=== PATIENT | female | born 1990 | race Caucasian/White ===

== ENCOUNTER 2017-01-26 03:49 | Emergency (ER) | payer OTHER ==
[2017-01-26 04:29] LABS: HEMOGLOBIN 12.7 gm/dl (12.3-15.3); RED BLOOD COUNT 4.48 M/UL (4.00-5.10); WHITE BLOOD COUNT 6.9 K/UL (4.5-11.0)
[2017-01-26 04:47] LABS: BUN/CREATININE RATIO 16 (0-10)
[2017-01-28] MEDS ORDERED: DOXYCYCLINE HY100 MG PO (08:56)
[2017-01-28] MEDS ORDERED: NORCO 5-325 TA1 EACH PO (08:56)
== END 2017-01-26 15:30 | disposition home or self-care (01) ==
LOC: ER1 03:49
PROVIDERS: Student in an Organized Health Care Education/Training Program
DX: N30.01 Acute cystitis with hematuria (principal); E87.6 Hypokalemia; F17.210 Nicotine dependence, cigarettes, uncomplicated
CPT/HCPCS: 36415; 51701; 76817; 80053; 81001; 83690; 84702; 84703; 85025; 86900; 86901; 87086; 87210; 96374; 96375; 96376; 99284; J0696; J2270; J2405; J7050

== ENCOUNTER → 2017-01-28 | Day surgery (SDC) | payer OTHER ==
[~2017-01-28] MED LIST: DOXYCYCLINE HY100 MG PO; NORCO 5-325 TA1 EACH PO
[2017-01-28 06:45] LABS: HEMOGLOBIN 12.6 gm/dl (12.3-15.3); RED BLOOD COUNT 4.38 M/UL (4.00-5.10); WHITE BLOOD COUNT 6.9 K/UL (4.5-11.0)
== END | disposition home or self-care (01) ==
LOC: OR 05:56
PROVIDERS: Obstetrics & Gynecology
PROC: 10D17ZZ Extraction of Products of Conception, Retained, Via Natural or Artificial Opening (ICD-10-PCS; principal; 2017-01-28 07:30)
DX: O02.1 Missed abortion (principal); F17.210 Nicotine dependence, cigarettes, uncomplicated; Z87.442 Personal history of urinary calculi; Z82.49 Family history of ischemic heart disease and other diseases of the circulatory system; Z83.3 Family history of diabetes mellitus; Z98.890 Other specified postprocedural states
CPT/HCPCS: 36415; 81001; 85025; J1885; J2250; J2405; J2795; J7120

== ENCOUNTER 2022-02-07 19:13 | Emergency (ER) | payer OTHER ==
[~2022-02-07 19:13] MED LIST changes: +COLACE 100MG C100 MG PO; +IBUPROFEN600 MG PO; +LORTAB 5-325 M1 EACH PO; +PRAMET FA TAB1 EA PO
[2022-02-07] MEDS ORDERED: PERCOCET 5/325 T1 EA PO (20:39)
[2022-02-07] MEDS ORDERED: IBUPROFEN600 MG PO (20:43)
[2022-02-07] MEDS ORDERED: ZOFRAN ODT 4 MG4 MG PO (20:43)
== END 2022-02-07 20:50 | disposition home or self-care (01) ==
LOC: ER1 19:13
DX: S52.121A Displaced fracture of head of right radius, initial encounter for closed fracture (principal); F17.210 Nicotine dependence, cigarettes, uncomplicated; W01.10XA Fall on same level from slipping, tripping and stumbling with subsequent striking against unspecified object, initial encounter
CPT/HCPCS: 29105; 73080; 99283

== ENCOUNTER → 2022-02-12 | Outpatient (CLI) | payer OTHER ==
[~2022-02-12] MED LIST changes: +PERCOCET 5/325 T1 EA PO; +ZOFRAN ODT 4 MG4 MG PO
== END ==
LOC: CT 15:00 → KOH-I 15:00
DX: S52.121A Displaced fracture of head of right radius, initial encounter for closed fracture (principal)
CPT/HCPCS: 73200

== ENCOUNTER 2022-03-24 15:48 | Emergency (ER) | payer OTHER ==
[2022-03-24 16:17] LABS: HEMOGLOBIN 11.8 gm/dl (12.3-15.3); RED BLOOD COUNT 4.71 M/UL (4.00-5.10); WHITE BLOOD COUNT 9.4 K/UL (4.5-11.0)
[2022-03-24 16:38] LABS: BUN/CREATININE RATIO 10 (0-10)
== END 2022-03-24 19:45 | disposition left against medical advice (07) ==
LOC: ER1 15:48
PROVIDERS: Physician Assistant Medical
DX: R07.9 Chest pain, unspecified (principal); F17.210 Nicotine dependence, cigarettes, uncomplicated; Z79.82 Long term (current) use of aspirin
CPT/HCPCS: 71045; 80053; 82550; 82553; 84484; 85025; 85379; 93005; 99283